=== PATIENT | male | born 2000 | race Caucasian/White ===

== ENCOUNTER 2023-03-26 21:54 | Emergency (ER) | payer MEDICAID ==
[~2023-03-26] VITALS: Ht 170 cm; Wt 74.0 kg
[2023-03-26] MEDS ORDERED: CEPH500T PO (22:11)
--- NOTE | 2023-03-26 22:11 | ED Integumentary General ---
General Chief Complaint: Skin/Wound Problems Stated Complaint: HARD BALL ABOVE GENTIAL AREA Source: patient Exam Limitations: no limitations (DEVIN FIGUEROA) History of Present Illness Date Seen by Provider: Mar 26, 2023 Time Seen by Provider: 22:10 Initial Comments Patient is a 22-year-old male who presents ED with a nodule and sore area around his suprapubic region. Noted a small red sore area yesterday. This has increased in size and pain. Tender to palpate. Denies taking thing for pain. Denies of any pain with urination frequent urination, vomiting, fever, chills, testicle or pain or testicle swelling. Patient did shave his pubic area today. Denies of any nodule prior (DEVIN FIGUEROA) Allergies and Home Medications Allergies Coded Allergies: NSAIDS (Non-Steroidal Anti-Inflamma (Verified Allergy, Unknown, 03/26/23) Patient Home Medication List Home Medication List Reviewed: Yes (DEVIN FIGUEROA) Cephalexin (Cephalexin) 500 Mg Tablet, 500 MG PO QID Prescribed by: TRICIA RODNEY on 03/26/232210 Review of Systems Review of Systems Constitutional: No chills, No diaphoresis, No malaise EENTM: No hearing loss, No ear pain, No blurred vision Respiratory: No cough Cardiovascular: No chest pain Gastrointestinal: No abdominal pain Genitourinary: No decreased output Musculoskeletal: No back pain Skin: change in color (DEVIN FIGUEROA) All Other Systems Reviewed Negative Unless Noted: Yes (DEVIN FIGUEROA) Past Cekpatt-Ytuhon-Uxzzbw Hx Patient Social History Tobacco Use?: No Use of E-Cig and/or Vaping dev: Yes E-Cig or Vaping type used: Nicotine Substance use?: No Alcohol Use?: Yes Alcohol Frequency: Rarely Pt feels they are or have been: No (DEVIN FIGUEROA) Past Medical History Surgery/Hospitalization HX: SEIZURES (DEVIN FIGUEROA) Physical Exam Vital Signs Vital Signs - First Documented 03/26/23 22:00 Temp 36.6 Pulse 82 Resp 14 B/P (MAP) 136/80 (98) Pulse Ox 97 O2 Delivery Room Air (LISE,KETURAH K DO) Vital Signs Capillary Refill : (DEVIN FIGUEROA) General Appearance: WD/WN, no apparent distress HEENT: PERRL/EOMI, normal ENT inspection, TMs normal, pharynx normal Neck: non-tender, full range of motion, supple, normal inspection Cardiovascular: regular rate, rhythm, no edema, no gallop, no JVD Respiratory: chest non-tender, lungs clear, normal breath sounds, no respiratory distress, no accessory muscle use Gastrointestinal: normal bowel sounds, soft, no organomegaly, no pulsatile mass Back: normal inspection, no CVA tenderness, no vertebral tenderness Extremities: normal range of motion, non-tender, normal inspection, no pedal edema 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 Localized erythema. Tender to palpate. No fluctuant mass) (DEVIN CASTORENA) Progress/Results/Core Measures Results/Orders Medications Given in ED Current Medications Medications Dose Ordered Sig/Nilay Route Start Time Stop Time Status Last Admin Dose Admin Acetaminophen 650 mg ONCE ONCE PO 03/26/23 22:15 03/26/23 22:16 DC 03/26/23 22:18 650 MG Cephalexin HCl 500 mg ONCE ONCE PO 03/26/23 22:15 03/26/23 22:16 DC 03/26/23 22:18 500 MG (KETURAH LEZAMA DO) Vital Signs/I&O 03/26/23 03/26/23 22:00 22:22 Temp 36.6 36.6 Pulse 82 82 Resp 14 14 B/P (MAP) 136/80 (98) 136/80 Pulse Ox 97 97 O2 Delivery Room Air Room Air (KETURAH LEZAMA DO) Departure Communication (PCP) Concern for infected sebaceous cyst versus potential developing abscess. Dime size erythematous Free movable nodule near the suprapubic region with localized redness. Discussed with patient recommend incision and drainage. Concerned that this may increase in size. He request to pursue with oral antibiotics at this time. States he will return back to ED if symptoms worsen. Patient received a dose of Keflex here. Will discharge with Keflex. Recommend Tylenol for pain as patient is allergic to NSAIDs. Warm compresses. Will likely at some point need incision and drainage as I believe this will not get any better. . (DEVIN FIGUEROA) Impression Primary Impression: Cellulitis Disposition: HOME, SELF-CARE Condition: Stable Departure-Patient Inst. Decision time for Depature: 22:10 (DEVIN FIGUEROA) Referrals: NO,LOCAL PHYSICIAN (PCP) Primary Care Physician IZABELA MARINELLI MD Patient Instructions: Cellulitis (Skin Infection), Adult ED Add. Discharge Instructions: If increased size and pain to return back to ED for incision and drainage. All discharge instructions reviewed with patient and/or family. Voiced understanding. Scripts Cephalexin (Cephalexin) 500 Mg Tablet 500 MG PO QID for 7 Days, #28 TAB Prov: DEVIN FIGUEROA 03/26/23 Work/School Note: Work Release Form Date Seen in the Emergency Department: Mar 26, 2023 Return to Work: Mar 29, 2023 ATTENDING PHYSICIAN NOTE: I WAS PHYSICALLY PRESENT ER PHYSICIAN BUT I WAS NOT INVOLVED IN ANY DECISION MAKING OR ANY CARE OF THIS PATIENT AND I AM NOT COLLABORATING PHYSICIAN (KETURAH LEZAMA DO) DEVIN FIGUEROA Mar 26, 2023 22:11 KETURAH LEZAMA DO Mar 27, 2023 04:59
[2023-03-26] MEDS ORDERED: ACETAMINOPHEN 325 MG TABLET PO ONE (22:15)
[2023-03-26] MEDS ORDERED: CEPHALEXIN 250 MG CAPSULE PO ONE (22:15)
[2023-03-26 22:22] VITALS: BP 136/80
[2023-03-27] MEDS ORDERED: SULF1TAB38 PO (23:54)
== END 2023-03-26 22:22 | disposition home or self-care (01) ==
LOC: ER 21:56
DX: L03.314 Cellulitis of groin (principal); F17.290 Nicotine dependence, other tobacco product, uncomplicated
CPT/HCPCS: 99283

== ENCOUNTER 2023-03-27 22:58 | Emergency (ER) | payer MEDICAID ==
[~2023-03-27] VITALS: Ht 170.8 cm; Wt 74.8 kg
[~2023-03-27 22:58] MED LIST: CEPH500T PO
[2023-03-27 23:04] VITALS: BP 129/84
[2023-03-27] MEDS ORDERED: LIDOCAINE 1% INJ 10 ML VIAL ONE (23:37)
[2023-03-27] MEDS: LIDOCAINE 1% INJ 20 ML VIAL IJ ONE (23:44)
[2023-03-27] MEDS ORDERED: RX-TRIMETH/SULFA. 160-800 MG (BACTRIM DS) TAB PPK#2 PO STA (23:52)
[2023-03-27] MEDS ORDERED: SULF1TAB38 PO (23:54)
--- NOTE | 2023-03-27 23:55 | ED Integumentary General ---
General Chief Complaint: Skin/Wound Problems Stated Complaint: PELVIC AREA ABSCESS Nursing Triage Note: PT AMB TO RM 8 W C/O POSS ABSCESS ON PUBIC REGION. PT REPORTS HE WAS EVALUATED YESTERDAY AND ADVISED TO RETURN FOR INCREASE IN SIZE OR PAIN. PT REPORTS AREA OF CONCERN IS SIGNIFICANTLY MORE PAINFUL AND RED TODAY. A&OX4, HAS NOT PICKED UP ORAL ABX PRESCRIBED YESTERDAY. Source: patient History of Present Illness Date Seen by Provider: Mar 27, 2023 Time Seen by Provider: 23:05 Allergies and Home Medications Allergies Coded Allergies: NSAIDS (Non-Steroidal Anti-Inflamma (Verified Allergy, Unknown, 03/26/23) Patient Home Medication List Cephalexin (Cephalexin) 500 Mg Tablet, 500 MG PO QID Prescribed by: TRICIA RODNEY on 03/26/232210 Past Whugehi-Vnwvor-Rpjtss Hx Patient Social History Tobacco Use?: No Use of E-Cig and/or Vaping dev: Yes E-Cig or Vaping type used: Nicotine Use of E-Cig and/or Vaping [place]: Current Everyday User Substance use?: No Alcohol Use?: No Past Medical History Surgery/Hospitalization HX: SEIZURES Physical Exam Vital Signs Vital Signs - First Documented 03/27/23 23:04 Temp 36.9 Pulse 71 Resp 18 B/P (MAP) 129/84 (99) Pulse Ox 98 O2 Delivery Room Air Capillary Refill : Less Than 3 Seconds Progress/Results/Core Measures Results/Orders My Orders Orders - KETURAH LEZAMA DO Lidocaine 1% Inj 20 Ml (Xylocaine 1% Inj (03/27/23 23:30) Wound Culture (03/27/23 23:30) Lidocaine 1% Inj 10 Ml (Xylocaine 1% Inj (03/27/23 23:37) Rx-Trimeth/Sulfameth Ds Tab (Rx-Bactrim/ (03/27/23 23:52) Vital Signs/I&O 03/27/23 23:04 Temp 36.9 Pulse 71 Resp 18 B/P (MAP) 129/84 (99) Pulse Ox 98 O2 Delivery Room Air Blood Pressure Mean: 99 Departure Impression Primary Impression: Abscess of pubic region Disposition: 01 HOME, SELF-CARE Condition: Stable Departure-Patient Inst. Decision time for Depature: 23:53 Referrals: NO,LOCAL PHYSICIAN (PCP) Primary Care Physician Patient Instructions: Abscess Incision and Drainage ED Add. Discharge Instructions: LEAVE PACKING IN PLACE YOU MAY CHANGE DRESSING DAILY TAKE TYLENOL AND MOTRIN NEEDED FOR PAIN RETURN TO ER IN 2 DAYS FOR RECHECK AND POSSIBLE REPACKING All discharge instructions reviewed with patient and/or family. Voiced understanding. Scripts Sulfamethoxazole/Trimethoprim (Bactrim Ds Tablet) 1 Each Tablet 1 EACH PO BID, #20 TAB Prov: KETURAH LEZAMA DO 03/27/23 KETURAH LEZAMA DO Mar 27, 2023 23:54
[2023-03-28] MEDS: LIDOCAINE 1% INJ 20 ML VIAL IJ ONE (00:02)
== END 2023-03-28 00:07 | disposition home or self-care (01) ==
LOC: EDUNIT# 22:58 → ER 23:01
DX: K65.1 Peritoneal abscess (principal); F17.290 Nicotine dependence, other tobacco product, uncomplicated
CPT/HCPCS: 10061; 87070; 87077; 87186; 87205

== ENCOUNTER 2023-03-29 06:33 | Emergency (ER) | payer MEDICAID ==
[~2023-03-29] VITALS: Ht 173 cm; Wt 67.7 kg
[~2023-03-29 06:33] MED LIST changes: +SULF1TAB38 PO
[2023-03-29 06:56] VITALS: BP 118/77
[2023-03-29] MEDS ORDERED: ACETAMINOPHEN 500 MG TABLET PO ONE (07:00)
--- NOTE | 2023-03-29 07:00 | ED Integumentary General ---
General Chief Complaint: Skin/Wound Problems Stated Complaint: WOUND CHECK,PELVIC ABSCESS Source: patient Exam Limitations: no limitations History of Present Illness Date Seen by Provider: Mar 29, 2023 Time Seen by Provider: 06:52 Initial Comments 22-year-old male presents for a wound check in his left groin. He had an abscess drained on 03/20 7 in the evening. Packing was placed. He was changed from Keflex to Bactrim at that time. He states he did not get his antibiotic as the pharmacy said they were out. No fevers chills. Overall he states the wound is looking better. All other systems reviewed and negative except documented per HPI. Voice recognition software was used to help create this chart Allergies and Home Medications Allergies Coded Allergies: NSAIDS (Non-Steroidal Anti-Inflamma (Verified Allergy, Unknown, 03/26/23) Patient Home Medication List Home Medication List Reviewed: Yes Cephalexin (Cephalexin) 500 Mg Tablet, 500 MG PO QID Prescribed by: TRICIA RODNEY on 03/26/23 2211 Sulfamethoxazole/Trimethoprim (Bactrim Ds Tablet) 1 Each Tablet, 1 EACH PO BID Prescribed by: KETURAH LEZAMA on 03/27/23 5106 Review of Systems Review of Systems Constitutional: see HPI Past Hfslnfy-Tlhsvs-Urzvwh Hx Patient Social History Tobacco Use?: No Use of E-Cig and/or Vaping dev: No Substance use?: No Alcohol Use?: No Past Medical History Surgery/Hospitalization HX: SEIZURES Physical Exam Vital Signs Capillary Refill : General Appearance: WD/WN, no apparent distress Skin: other (Packing removed from the left suprapubic wound. No further purulent drainage. 1 cm area of induration at the incision site, no fluctuance. No surrounding erythema. Overall healing well.) Progress/Results/Core Measures Results/Orders My Orders Orders - NUVIA ZEPEDA DO Acetaminophen Tablet (Acetaminophen Ta (03/29/23 07:00) Departure Impression Primary Impression: Wound check, abscess Disposition: HOME, SELF-CARE Condition: Stable Departure-Patient Inst. Referrals: NO,LOCAL PHYSICIAN (PCP/Family) Primary Care Physician Patient Instructions: Wound Care (DC), Cellulitis (Skin Infection), Adult (DC) Add. Discharge Instructions: Go to [facility] to picking belt operator your antibiotic. Return to the emergency department for any redness that spreading or drainage looks like pus. All discharge instructions reviewed with patient and/or family. Voiced understanding. NUVIA ZEPEDA DO Mar 29, 2023 07:00
[2023-03-30] MEDS ORDERED: DIVA500T PO ×2 (16:06→16:32)
== END 2023-03-29 07:04 ==
LOC: EDUNIT# 06:33 → ER 06:37
DX: L02.214 Cutaneous abscess of groin (principal)
CPT/HCPCS: 99281

== ENCOUNTER 2023-03-30 13:47 | Emergency (ER) | payer MEDICAID ==
[~2023-03-30] VITALS: Ht 170.2 cm; Wt 66.2 kg
--- NOTE | 2023-03-30 14:32 | ED Neurological Problem ---
General Chief Complaint: General Problems/Pain Stated Complaint: SEIZURE 03/29 Nursing Triage Note: PT AMBULATE TO ROOM 06 WITH C/O ALMOST HAVING A SEIZURE LAST NIGHT. PT REPORTS HE STOPPED TAKING HIS SEIZURE MEDS X2 WEEKS AGO BECAUSE THEY WERE MAKING HIM "ANGRY". PT DENIES ANY SYMPTOMS TODAY. PT REPORTS HE HAS NOT BEEN ABLE TO GET AHOLD OF ANY ONE TO CHANGE HIS MEDICATIONS IN X1.5 MONTHS. PT STATES HIS PCP FIRED HIM BECAUSE HE MISSED X1 APPT. Source: patient Exam Limitations: no limitations (ASTON SAUCEDO APRN) History of Present Illness Date Seen by Provider: Mar 30, 2023 Time Seen by Provider: 14:15 Initial Comments 22-year-old male presents to the ER with reports of having a seizure last night and almost having a seizure today. He has a history of seizures, he was prescribed Depakote, but stopped taking it approximately 2 months ago because he said it made him angry. He states he has been trying to get a hold of his neurologist but has been unable to to discuss changing his medication. He states that while on Depakote he was still having small seizures every night, but states that since he stopped taking it the seizures have been worse. He states that they also put him on Depakote because it is an antidepressant and mood stabilizer. He states he was never on any other antiseizure medications. He started having seizures last year. He states that last night before his seizure he was having chest pain, states he is still having chest pain which has been constant since the seizure last night. Denies fevers, shortness of air, abdominal pain. (ASTON SAUCEDO APRN) Allergies and Home Medications Allergies Coded Allergies: NSAIDS (Non-Steroidal Anti-Inflamma (Verified Allergy, Unknown, 03/26/23) Patient Home Medication List Home Medication List Reviewed: Yes (ASTON SAUCEDO APRN) Cephalexin (Cephalexin) 500 Mg Tablet, 500 MG PO QID Prescribed by: TRICIA RODNEY on 03/26/232210 Divalproex Sodium (Depakote) 500 Mg Tablet.dr, 500 MG PO BID Prescribed by: ZORAIDA HI on 03/30/23 1632 Sulfamethoxazole/Trimethoprim (Bactrim Ds Tablet) 1 Each Tablet, 1 EACH PO BID Prescribed by: KETURAH LEZAMA on 03/27/23 9866 Review of Systems Review of Systems Constitutional: see HPI (ASTON SAUCEDO APRN) Past Qgzzfzm-Dpaylu-Mvffct Hx Patient Social History Tobacco Use?: No Smoking Status: Never a Smoker Smokeless Tobacco Frequency: Never a User Use of E-Cig and/or Vaping dev: Yes E-Cig or Vaping type used: Nicotine Use of E-Cig and/or Vaping [place]: Current Everyday User Substance use?: No Alcohol Use?: No Pt feels they are or have been: No (ASTON SAUCEDO APRN) Past Medical History Surgery/Hospitalization HX: SEIZURES (ASTON SAUCEDO APRN) Physical Exam Vital Signs Vital Signs - First Documented 03/30/23 03/30/23 14:00 16:14 Temp 37.1 Pulse 87 Resp 17 B/P (MAP) 139/79 (99) Pulse Ox 98 O2 Delivery Room Air (ZORAIDA KEARNEY MD) Vital Signs Capillary Refill : Less Than 3 Seconds (ASTON SAUCEDO APRN) Height, Weight, BMI Height: '" Weight: lbs. oz. 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, no motor/sensory deficits, alert, normal mood/affect Crainal Nerves: normal hearing, normal speech, PERRL Skin: normal color, warm/dry (ASTON SAUCEDO APRN) Progress/Results/Core Measures Results/Orders Lab Results Laboratory Tests Test 03/30/23 14:44 03/30/23 15:02 Range/Units Urine Color YELLOW Urine Clarity CLEAR Urine pH 6.0 5-9 Urine Specific Alsey 1.020 1.016-1.022 Urine Protein NEGATIVE NEGATIVE Urine Glucose (UA) NEGATIVE NEGATIVE Urine Ketones NEGATIVE NEGATIVE Urine Nitrite NEGATIVE NEGATIVE Urine Bilirubin NEGATIVE NEGATIVE Urine Urobilinogen 0.2 < = 1.0 MG/DL Urine Leukocyte Esterase NEGATIVE NEGATIVE Urine RBC (Auto) NEGATIVE NEGATIVE Urine RBC NONE /HPF Urine WBC NONE /HPF Urine Squamous Epithelial Cells RARE /HPF Urine Crystals NONE /LPF Urine Bacteria NEGATIVE /HPF Urine Casts NONE /LPF Urine Mucus NEGATIVE /LPF Urine Culture Indicated NO White Blood Count 8.4 4.3-11.0 10^3/uL Red Blood Count 4.40 4.30-5.52 10^6/uL Hemoglobin 13.7 13.3-17.7 g/dL Hematocrit 39 L 40-54 % Mean Corpuscular Volume 89 80-99 fL Mean Corpuscular Hemoglobin 31 25-34 pg Mean Corpuscular Hemoglobin Concent 35 32-36 g/dL Red Cell Distribution Width 11.9 10.0-14.5 % Platelet Count 293 130-400 10^3/uL Mean Platelet Volume 9.8 9.0-12.2 fL Immature Granulocyte % (Auto) 0 % Neutrophils (%) (Auto) 67 42-75 % Lymphocytes (%) (Auto) 26 12-44 % Monocytes (%) (Auto) 6 0-12 % Eosinophils (%) (Auto) 2 0-10 % Basophils (%) (Auto) 1 0-10 % Neutrophils # (Auto) 5.6 1.8-7.8 10^3/uL Lymphocytes # (Auto) 2.1 1.0-4.0 10^3/uL Monocytes # (Auto) 0.5 0.0-1.0 10^3/uL Eosinophils # (Auto) 0.1 0.0-0.3 10^3/uL Basophils # (Auto) 0.1 0.0-0.1 10^3/uL Immature Granulocyte # (Auto) 0.0 0.0-0.1 10^3/uL Sodium Level 137 135-145 MMOL/L Potassium Level 3.5 L 3.6-5.0 MMOL/L Chloride Level 105 98-107 MMOL/L Carbon Dioxide Level 21 21-32 MMOL/L Anion Gap 11 5-14 MMOL/L Blood Urea Nitrogen 12 7-18 MG/DL Creatinine 0.89 0.60-1.30 MG/DL Estimat Glomerular Filtration Rate 125 BUN/Creatinine Ratio 13 Glucose Level 149 H 70-105 MG/DL Calcium Level 9.7 8.5-10.1 MG/DL Corrected Calcium 9.5 8.5-10.1 MG/DL Magnesium Level 2.0 1.6-2.4 MG/DL Total Bilirubin 0.3 0.1-1.0 MG/DL Aspartate Amino Transf (AST/SGOT) 24 5-34 U/L Alanine Aminotransferase (ALT/SGPT) 20 0-55 U/L Alkaline Phosphatase 61 40-136 U/L Troponin I < 0.028 <0.028 NG/ML Total Protein 6.8 6.4-8.2 GM/DL Albumin 4.3 3.2-4.5 GM/DL (ZORAIDA KEARNEY MD) Vital Signs/I&O 03/30/23 03/30/23 14:00 16:14 Temp 37.1 Pulse 87 85 Resp 17 16 B/P (MAP) 139/79 (99) 135/82 Pulse Ox 98 O2 Delivery Room Air Room Air (ZORAIDA KEARNEY MD) Blood Pressure Mean: 99 Progress Progress Note : Progress Note Patient seen and evaluated, resting comfortably in bed, no acute distress. Worsening of seizures likely related to patient stopping his Depakote. Work-up initiated including CBC, CMP, magnesium, troponin, EKG, UA, chest x-ray, EKG. 1603 Labs and x-ray reviewed. CBC grossly normal. CMP grossly normal, potassium slightly low 3.5, glucose 149. Troponin negative. Urinalysis negative for infection. Chest x-ray shows no acute finding. Results discussed with patient. Will discharge patient with prescription for his Depakote. Discharge instructions and return precautions provided. (ASTON SAUCEDO APRN) Initial ECG Impression Date: Mar 30, 2023 Initial ECG Impression Time: 14:51 Initial ECG Rate: 62 Initial ECG Rhythm: Normal Sinus Initial ECG Intervals: Normal Initial ECG Impression: Normal Initial ECG Comparisson: No Previous ECG Available (ASTON SAUCEDO APRN) Diagnostic Imaging Diagonstic Imaging: Xray Plain Films/CT/US/NM/MRI: chest Comments [facility], [place] NAME: REBECCA GARCIA REC#: [id number] PT STATUS: REG ER : 2000 PHYSICIAN: ASTON SAUCEDO APRN ADMIT DATE: 03/30/23/ER Signed Date of Exam:03/30/23 CHEST 1 VIEW, AP/PA ONLY EXAMINATION: Chest 1 view HISTORY: Chest pain. COMPARISON: None available. FINDINGS: The lung volumes are normal. No focal consolidation is seen. No large pleural effusion or pneumothorax is seen. The cardiomediastinal silhouette is normal in size and contour. No acute osseous abnormality is seen. IMPRESSION: 1. No acute pleuroparenchymal process. Dictated by: Dictated on workstation # [id number] Dict: 03/30/23 1500 Trans: 03/30/23 1545 [facility] [id number] Interpreted by: NORM LOCKWOOD DO Electronically signed by: NORM LOCKWOOD DO 03/30/23 1545 (ASTON SAUCEDO APRN) Departure Impression Primary Impression: Seizure Disposition: 01 HOME, SELF-CARE Condition: Stable Departure-Patient Inst. Decision time for Depature: 16:03 (ASTON SAUCEDO APRN) Referrals: NO,LOCAL PHYSICIAN (PCP/Family) Primary Care Physician Patient Instructions: Seizures Add. Discharge Instructions: Take your seizure medications as prescribed. Follow-up with your neurologist for further refills and to discuss switching medications. No driving or operating heavy machinery. Return for any recurrent seizures, difficulty walking or moving your arms, slurred speech, difficulty with normal activities, abnormal behavior, vision changes, or any other new, concerning, or worsening symptoms. All discharge instructions reviewed with patient and/or family. Voiced understanding. Scripts Divalproex Sodium (Depakote) 500 Mg Tablet.dr 500 MG PO BID for 30 Days, #60 TAB 0 Refills Prov: ZORAIDA KEARNEY MD 03/30/23 ATTENDING PHYSICIAN NOTE: I was physically present as attending physician in the emergency department during the care of this patient, but I was not directly involved in the decision making or delivery of care for this patient. Depakote prescription was resent due to a problem with processing [place] Medicaid by the [employer]. (ZORAIDA KEARNEY MD) ASTON SAUCEDO APRN Mar 30, 2023 14:32 ZORAIDA KEARNEY MD Mar 30, 2023 16:33
[2023-03-30 14:53] LABS: BILIRUBIN,URINE NEGATIVE (NEGATIVE); CLARITY,URINE CLEAR; COLOR,URINE YELLOW; GLUCOSE, URINE (UA) NEGATIVE (NEGATIVE); KETONES,URINE NEGATIVE (NEGATIVE); LEUKOCYTE ESTERASE ,URINE NEGATIVE (NEGATIVE); NITRITE,URINE NEGATIVE (NEGATIVE); PROTEIN,URINE NEGATIVE (NEGATIVE)
[2023-03-30 15:10] LABS: BASOPHILS # (AUTO) 0.1 10^3/uL (0.0-0.1); BASOPHILS % (AUTO) 1 % (0-10); EOSINOPHILS # (AUTO) 0.1 10^3/uL (0.0-0.3); EOSINOPHILS % (AUTO) 2 % (0-10); HEMATOCRIT 39 % (40-54); HEMOGLOBIN 13.7 g/dL (13.3-17.7); LYMPHOCYTES # (AUTO) 2.1 10^3/uL (1.0-4.0); LYMPHOCYTES % (AUTO) 26 % (12-44); MEAN CORPUSCULAR HEMOGLOBIN 31 pg (25-34); MEAN CORPUSCULAR HGB CONC 35 g/dL (32-36); MEAN CORPUSCULAR VOLUME 89 fL (80-99); MEAN PLATELET VOLUME 9.8 fL (9.0-12.2); MONOCYTES # (AUTO) 0.5 10^3/uL (0.0-1.0); MONOCYTES % (AUTO) 6 % (0-12); NEUTROPHILS # (AUTO) 5.6 10^3/uL (1.8-7.8); NEUTROPHILS % (AUTO) 67 % (42-75); PLATELET COUNT 293 10^3/uL (130-400); WHITE BLOOD COUNT 8.4 10^3/uL (4.3-11.0)
[2023-03-30 15:15] LABS: BACTERIA,URINE NEGATIVE /HPF; SQUAMOUS EPITHELIAL CELL,UR RARE /HPF
--- NOTE | 2023-03-30 15:25 | Diagnostic Imaging Report ---
EXAMINATION: Chest 1 view HISTORY: Chest pain. COMPARISON: None available. FINDINGS: The lung volumes are normal. No focal consolidation is seen. No large pleural effusion or pneumothorax is seen. The cardiomediastinal silhouette is normal in size and contour. No acute osseous abnormality is seen. IMPRESSION: 1. No acute pleuroparenchymal process. Dictated by: Dictated on workstation # [id number]
[2023-03-30 15:29] LABS: ALBUMIN 4.3 GM/DL (3.2-4.5)
[2023-03-30 15:30] LABS: CHLORIDE 105 MMOL/L (98-107); POTASSIUM 3.5 MMOL/L (3.6-5.0); SODIUM 137 MMOL/L (135-145)
[2023-03-30 15:31] LABS: CALCIUM 9.7 MG/DL (8.5-10.1)
[2023-03-30 15:32] LABS: GLUCOSE 149 MG/DL (70-105); TOTAL PROTEIN 6.8 GM/DL (6.4-8.2)
[2023-03-30 15:33] LABS: CARBON DIOXIDE 21 MMOL/L (21-32)
[2023-03-30 15:34] LABS: BILIRUBIN,TOTAL 0.3 MG/DL (0.1-1.0)
[2023-03-30 15:35] LABS: ALKALINE PHOSPHATASE 61 U/L (40-136)
[2023-03-30 15:36] LABS: CREATININE SERUM 0.89 MG/DL (0.60-1.30); GFR ESTIMATED 125
[2023-03-30 15:37] LABS: BUN/CREATININE RATIO 13
[2023-03-30 15:38] LABS: ALANINE AMINOTRANSFERASE 20 U/L (0-55)
[2023-03-30] MEDS ORDERED: DIVA500T PO ×2 (16:06→16:32)
[2023-03-30 16:14] VITALS: BP 135/82
== END 2023-03-30 16:14 | disposition home or self-care (01) ==
LOC: EDUNIT# 13:47 → ER 13:48
DX: R56.9 Unspecified convulsions (principal); F17.290 Nicotine dependence, other tobacco product, uncomplicated; Z91.148 Patient's other noncompliance with medication regimen for other reason
CPT/HCPCS: 36415; 71045; 80053; 81000; 83735; 84484; 85025; 93005; 93041

== ENCOUNTER 2023-04-02 19:59 | Emergency (ER) | payer MEDICAID ==
[~2023-04-02 19:59] MED LIST changes: +DIVA500T PO
--- NOTE | 2023-04-02 20:29 | ED General ---
General Chief Complaint: General Problems/Pain Stated Complaint: CHEST PAIN/WEAKNESS/POSS SEIZURE Source of Information: Patient Exam Limitations: No Limitations (DEVIN FIGUEROA) History of Present Illness Date Seen by Provider: Apr 02, 2023 Time Seen by Provider: 20:26 Initial Comments Patient is a 22-year-old male with a history of seizures who presents to the ED for chest pain. Potentially had a seizure 30 minutes ago. Patient went to the bathroom. Patient states he was texting at the time. Patient potentially fell in the bathroom. According to significant other she did not hear any fall. She did walk-in on patient and he appeared to be having convulsions with clinched hands. This lasted for potentially a few minutes. Seemed somewhat postictal after. Patient was brought to the ED by POV. Patient Was complaining of chest pain after the seizure and has been having difficulty gripping so they brought patient should be evaluated. History of seizures currently on Depakote 500 mg twice daily. Patient Was seen this past Friday for seizure but states he did not take start taking his medication for at least 2 to 3 weeks prior. Restarted the medication on Friday. Reports history of seizure about 3 times a week. Patient reports substernal sharp chest pressure after the fall. Denies hitting his chest. No bruising or swelling to the chest. Chest pressure radiates up into the neck. Rates pain 7 out of 10. associated shortness of breath and pain with deep inspiration. Family history of heart disease. Denies history of coronary artery disease. No recent travels or surgeries. Denies any vomiting, visual changes, dizziness, neck pain, middle lower back pain, distal numbness and tingling. Reports a mild headache but that is improving. Significant other did not note any acute trauma to the head. States he feels slightly weak. Patient recently moved to the area. Patient has not established with a primary care physician (DEVIN FIGUEROA) Allergies and Home Medications Allergies Coded Allergies: NSAIDS (Non-Steroidal Anti-Inflamma (Verified Allergy, Unknown, 03/26/23) Patient Home Medication List Home Medication List Reviewed: Yes (DEVIN FIGUEROA) Cephalexin (Cephalexin) 500 Mg Tablet, 500 MG PO QID Prescribed by: TRICIA RODNEY on 03/26/231 Divalproex Sodium (Depakote) 500 Mg Tablet.dr, 500 MG PO BID Prescribed by: ZORAIDA HI on 03/30/23 1632 Sulfamethoxazole/Trimethoprim (Bactrim Ds Tablet) 1 Each Tablet, 1 EACH PO BID Prescribed by: KETURAH LEZAMA on 03/27/23 3607 Review of Systems Review of Systems Constitutional: No chills, No diaphoresis, No malaise, No weakness EENTM: No hearing loss, No ear pain, No blurred vision, No double vision Respiratory: No cough, No dyspnea on exertion, No short of breath, No wheezing Cardiovascular: chest pain Gastrointestinal: No abdominal pain, No diarrhea, No nausea, No vomiting Genitourinary: No decreased output, No discharge Musculoskeletal: No back pain, No joint pain, No joint swelling, No muscle pain Skin: No change in color, No change in hair/nails Psychiatric/Neurological: Denies Anxiety, Denies Depressed; Seizure (DEVIN FIGUEROA) All Other Systems Reviewed Negative Unless Noted: Yes (DEVIN FIGUEROA) Past Dvzjhuf-Xfkidz-Dcoyue Hx Past Medical History Surgery/Hospitalization HX: SEIZURES (DEVIN FIGUEROA) Physical Exam Vital Signs Vital Signs - First Documented 04/02/23 20:15 Temp 37.2 Pulse 90 Resp 14 B/P (MAP) 125/74 (91) Pulse Ox 95 O2 Delivery Room Air (ZORAIDA KEARNEY MD) Vital Signs Capillary Refill : (DEVIN FIGUEROA) Height, Weight, BMI Height: '" Weight: lbs. oz. kg; 22.00 BMI Method: General Appearance: No Apparent Distress, WD/WN Eyes: Bilateral Eye Normal Inspection, Bilateral Eye PERRL, Bilateral Eye EOMI HEENT: PERRL/EOMI, TMs Normal, Normal ENT Inspection, Pharynx Normal Neck: Full Range of Motion, Normal Inspection, Non Tender, Supple Respiratory: Chest Non Tender, Lungs Clear, Normal Breath Sounds, No Accessory Muscle Use, No Respiratory Distress Cardiovascular: Regular Rate, Rhythm, No Edema, No Gallop, No JVD, No Murmur Gastrointestinal: Normal Bowel Sounds, No Organomegaly, No Pulsatile Mass, Non Tender Back: Normal Inspection, No CVA Tenderness, No Vertebral Tenderness Extremity: Normal Capillary Refill, Normal Inspection, Normal Range of Motion Neurologic/Psychiatric: Alert, Oriented x3, No Motor/Sensory Deficits, Normal Mood/Affect, 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 as Tested Skin: Normal Color, Warm/Dry (DEVIN FIGUEROA) Focused Exam Lactate Level 04/02/23 20:33: Lactic Acid Level 1.80 (ZORAIDA KEARNEY MD) Lactic Acid Level Laboratory Tests Test 04/02/23 20:33 Lactic Acid Level 1.80 MMOL/L (0.50-2.00) (ZORAIDA KEARNEY MD) Progress/Results/Core Measures Suspected Sepsis SIRS Temperature: Pulse: Respiratory Rate: Laboratory Tests 04/02/23 20:33: White Blood Count 8.0 Blood Pressure / Mean: 04/02/23 20:33: Lactic Acid Level 1.80 Laboratory Tests 04/02/23 20:33: Creatinine 0.92, INR Comment 1.1, Platelet Count 304, Total Bilirubin 0.3 (DEVIN FIGUEROA) Results/Orders Lab Results Laboratory Tests Test 04/02/23 20:33 Range/Units White Blood Count 8.0 4.3-11.0 10^3/uL Red Blood Count 4.22 L 4.30-5.52 10^6/uL Hemoglobin 13.1 L 13.3-17.7 g/dL Hematocrit 38 L 40-54 % Mean Corpuscular Volume 91 80-99 fL Mean Corpuscular Hemoglobin 31 25-34 pg Mean Corpuscular Hemoglobin Concent 34 32-36 g/dL Red Cell Distribution Width 11.9 10.0-14.5 % Platelet Count 304 130-400 10^3/uL Mean Platelet Volume 9.5 9.0-12.2 fL Immature Granulocyte % (Auto) 0 % Neutrophils (%) (Auto) 60 42-75 % Lymphocytes (%) (Auto) 30 12-44 % Monocytes (%) (Auto) 7 0-12 % Eosinophils (%) (Auto) 2 0-10 % Basophils (%) (Auto) 1 0-10 % Neutrophils # (Auto) 4.8 1.8-7.8 10^3/uL Lymphocytes # (Auto) 2.4 1.0-4.0 10^3/uL Monocytes # (Auto) 0.5 0.0-1.0 10^3/uL Eosinophils # (Auto) 0.1 0.0-0.3 10^3/uL Basophils # (Auto) 0.1 0.0-0.1 10^3/uL Immature Granulocyte # (Auto) 0.0 0.0-0.1 10^3/uL Prothrombin Time 14.2 12.2-14.7 SEC INR Comment 1.1 0.8-1.4 Activated Partial Thromboplast Time 28 24-35 SEC Sodium Level 139 135-145 MMOL/L Potassium Level 3.9 3.6-5.0 MMOL/L Chloride Level 107 98-107 MMOL/L Carbon Dioxide Level 22 21-32 MMOL/L Anion Gap 10 5-14 MMOL/L Blood Urea Nitrogen 17 7-18 MG/DL Creatinine 0.92 0.60-1.30 MG/DL Estimat Glomerular Filtration Rate 121 BUN/Creatinine Ratio 18 Glucose Level 119 H 70-105 MG/DL Lactic Acid Level 1.80 0.50-2.00 MMOL/L Calcium Level 9.3 8.5-10.1 MG/DL Corrected Calcium 9.2 8.5-10.1 MG/DL Magnesium Level 2.1 1.6-2.4 MG/DL Total Bilirubin 0.3 0.1-1.0 MG/DL Aspartate Amino Transf (AST/SGOT) 24 5-34 U/L Alkaline Phosphatase 66 40-136 U/L Troponin I < 0.028 <0.028 NG/ML Total Protein 6.7 6.4-8.2 GM/DL Albumin 4.1 3.2-4.5 GM/DL Lipase 38 8-78 U/L Valproic Acid (Depakene) Level 37.3 L 50.0-100.0 UG/ML (ZORAIDA KEARNEY MD) Vital Signs/I&O 04/02/23 04/02/23 20:15 21:34 Temp 37.2 37.2 Pulse 90 85 Resp 14 14 B/P (MAP) 125/74 (91) 109/71 Pulse Ox 95 98 O2 Delivery Room Air Room Air (ZORAIDA KEARNEY MD) Vital Signs/I&O Capillary Refill : (DEVIN FIGUEROA) ECG Comment Sinus rhythm with sinus arrhythmia, 76 bpm, QRS duration 70 MS, QTc 359 MS (DEVIN FIGUEROA) Departure Communication (PCP) Patient presents to the ED for chest pain weakness and a possible seizure. History of seizures. Patient has been off his Depakote until this past Friday which she takes 500 mg twice daily. Patient Was seen on Friday for a potential seizure. Significant other did not hear a fall. She went into the bathroom and patient appeared to be having convulsions and contractions of his upper extrem ities. Believes this lasted for a few minutes. He states his seizures are led by stress and or anxiety. Reports at least 3 seizures weekly. Has not established with a primary care physician in this area. Recently moved. Patient alert and orient x4 on arrival. Reports chest pain after the seizure described as pressure substernal. Pressure with deep inspiration associate shor tness of breath. patient is not tachycardic or hypoxic.. Denies falling or hitting his chest. There is no obvious bruising or swelling. He has no cervical or head tenderness on exam. Neuro exam unremarkable. CT scan of the head was held. Generalized lab work was ordered. EKG with chest x-ray. Seizure precautions. CBC, CMP grossly unremarkable. Did add a lactic acid as the seizure did happen 30 minutes prior. Lactic acid was normal. Would likely suspect an elevated lactic acid if a true seizure within the first hour. Patient was not postictal. Seizures could be psychogenic nonepileptic seizures. Chest x-ray was negative for pneumonia, pneumothorax. EKG normal sinus rhythm without evidence of arrhythmia. Denies any drug use or alcohol use. Patient appears in no acute distress. Not necessarily concern for ACS. No evidence suggesting pericarditis or myocarditis. No recent URI. No meningeal signs. he is currently on Keflex and Bactrim for infection in his lower abdomen. This wound appears to be healing. He is afebrile. Does not appear toxic. Recommend establishing with a primary care physician in the area to help manage your chronic medical conditions. If any worsening symptoms such as chest pain short of breath return back to ED. Recommend no driving until seen by neurology. Provided outpatient neurology follow-up. Further cardiac work-up as needed. (DEVIN FIGUEROA) Impression Primary Impression: Chest pain Disposition: 01 HOME, SELF-CARE Condition: Stable Departure-Patient Inst. Decision time for Depature: 21:24 (DEVIN FIGUEROA) Referrals: [facility]/ZARIA ROSAS MD NO,LOCAL PHYSICIAN (PCP) Primary Care Physician Patient Instructions: Chest Pain (DC) Add. Discharge Instructions: Recommend following up with your primary care physician for further evaluation. If any worsening chest pain or shortness of breath or seizure-like activity to return back to the ED. All discharge instructions reviewed with patient and/or family. Voiced understanding. ATTENDING PHYSICIAN NOTE: I was physically present as attending physician in the emergency department during the care of this patient, but I was not directly involved in the decision making or delivery of care for this patient. (ZORAIDA KEARNEY MD) DEVIN FIGUEROA Apr 02, 2023 20:29 ZORAIDA KEARNEY MD Apr 02, 2023 21:59
[2023-04-02 20:39] LABS: BASOPHILS # (AUTO) 0.1 10^3/uL (0.0-0.1); BASOPHILS % (AUTO) 1 % (0-10); EOSINOPHILS # (AUTO) 0.1 10^3/uL (0.0-0.3); EOSINOPHILS % (AUTO) 2 % (0-10); HEMATOCRIT 38 % (40-54); HEMOGLOBIN 13.1 g/dL (13.3-17.7); LYMPHOCYTES # (AUTO) 2.4 10^3/uL (1.0-4.0); LYMPHOCYTES % (AUTO) 30 % (12-44); MEAN CORPUSCULAR HEMOGLOBIN 31 pg (25-34); MEAN CORPUSCULAR HGB CONC 34 g/dL (32-36); MEAN CORPUSCULAR VOLUME 91 fL (80-99); MEAN PLATELET VOLUME 9.5 fL (9.0-12.2); MONOCYTES # (AUTO) 0.5 10^3/uL (0.0-1.0); MONOCYTES % (AUTO) 7 % (0-12); NEUTROPHILS # (AUTO) 4.8 10^3/uL (1.8-7.8); NEUTROPHILS % (AUTO) 60 % (42-75); PLATELET COUNT 304 10^3/uL (130-400)
[2023-04-02 20:57] LABS: INR 1.1 (0.8-1.4); PROTHROMBIN TIME PATIENT 14.2 SEC (12.2-14.7)
[2023-04-02 21:13] LABS: ALBUMIN 4.1 GM/DL (3.2-4.5); CHLORIDE 107 MMOL/L (98-107); POTASSIUM 3.9 MMOL/L (3.6-5.0); SODIUM 139 MMOL/L (135-145)
[2023-04-02 21:14] LABS: CALCIUM 9.3 MG/DL (8.5-10.1)
[2023-04-02 21:15] LABS: GLUCOSE 119 MG/DL (70-105); TOTAL PROTEIN 6.7 GM/DL (6.4-8.2)
[2023-04-02 21:17] LABS: BILIRUBIN,TOTAL 0.3 MG/DL (0.1-1.0); CARBON DIOXIDE 22 MMOL/L (21-32)
[2023-04-02 21:19] LABS: ALKALINE PHOSPHATASE 66 U/L (40-136); CREATININE SERUM 0.92 MG/DL (0.60-1.30); GFR ESTIMATED 121
[2023-04-02 21:20] LABS: BUN/CREATININE RATIO 18; VALPROIC ACID 37.3 UG/ML (50.0-100.0)
[2023-04-02 21:22] LABS: MAGNESIUM 2.1 MG/DL (1.6-2.4)
[2023-04-02 21:23] LABS: LIPASE 38 U/L (8-78)
--- NOTE | 2023-04-02 21:30 | Diagnostic Imaging Report ---
PATIENT HISTORY: Chest pain. TECHNIQUE: Single frontal view of the chest. COMPARISON: 03/30/2023. FINDINGS: The lung volumes are normal. No focal consolidation is seen. No large pleural effusion or pneumothorax is seen. The cardiomediastinal silhouette is normal in size and contour. No acute osseous abnormality is seen. IMPRESSION: No acute pulmonary abnormality seen. Dictated by: Dictated on workstation # [id number]
[2023-04-02 21:34] VITALS: BP 109/71
[2023-04-02 22:27] LABS: ALANINE AMINOTRANSFERASE 16 U/L (0-55)
== END 2023-04-02 21:36 | disposition home or self-care (01) ==
LOC: EDUNIT# 19:59 → ER 20:01
DX: R07.2 Precordial pain (principal); R06.02 Shortness of breath; G40.909 Epilepsy, unspecified, not intractable, without status epilepticus; Z79.899 Other long term (current) drug therapy; W18.30XA Fall on same level, unspecified, initial encounter; Y92.002 Bathroom of unspecified non-institutional (private) residence as the place of occurrence of the external cause
CPT/HCPCS: 36415; 71045; 80053; 80164; 83605; 83690; 83735; 84484; 85025; 85610; 85730; 93005